=== PATIENT | female | born 1980 | race Caucasian/White ===

== ENCOUNTER 2023-12-11 10:31 | Day surgery (SDC) | payer OTHER ==
[~2023-12-11] VITALS: Ht 162.6 cm; Wt 60.6 kg
[~2023-12-11 10:31] MED LIST: BCP'S; CELE200 PO; DOCU100 PO; Glycopyrrolate 0.2 MG/ML 1MLVIAL ONE; HYDR1TAB94 PO; Imitrex4 MG/0.5 M; Lactated Ringer's 1,000 ML IV ONE; Lidocaine 2% 5 ML SDV ONE; Lidocaine HCl/Pf 1% 5 ML VIAL ONE; ONDA4 PO; Ondansetron HCl 2 MG / ML 2ML Vial ONE; PROM25 PO; RXPROM25 PO; SUMA25 PO; ePHEDrine Sulfate 50 MG/ML 1ML Injection ONE; propofoL 50 ML IV ONE
[2023-12-11] MEDS ORDERED: NURTEC ODT75 MG (11:24)
[2023-12-11] MEDS ORDERED: AJOVY SYRI225 MG/1.5 (11:24)
--- NOTE | 2023-12-11 11:36 | NUR ---
12/11/23 Joan Michele uRINE CIELO : NEG LOT # [id number] EX # 2025 12 12 LAB ERROR RN KNOWS
[2023-12-11] MEDS ORDERED: Lactated Ringer's 1,000 ML IV ONE (11:45)
[2023-12-11] MEDS ORDERED: propofoL 50 ML IV ONE (12:29)
[2023-12-11] MEDS ORDERED: NS 500 ML IV ONE (12:47)
[2023-12-11 13:29] VITALS: BP 123/74
== END 2023-12-11 13:35 | disposition home or self-care (01) ==
LOC: ORSCSDS 10:31
PROVIDERS: Internal Medicine Gastroenterology
PROC: 0DBN8ZX Excision of Sigmoid Colon, Via Natural or Artificial Opening Endoscopic, Diagnostic (ICD-10-PCS; principal; 2023-12-11 12:00)
PROC: 0DBL8ZX Excision of Transverse Colon, Via Natural or Artificial Opening Endoscopic, Diagnostic (ICD-10-PCS; principal; 2023-12-11 12:00)
PROC: 0DBK8ZX Excision of Ascending Colon, Via Natural or Artificial Opening Endoscopic, Diagnostic (ICD-10-PCS; principal; 2023-12-11 12:00)
DX: Z12.11 Encounter for screening for malignant neoplasm of colon (principal); Z86.0101 Personal history of adenomatous and serrated colon polyps; Z80.0 Family history of malignant neoplasm of digestive organs; Z83.719 Family history of colon polyps, unspecified; D12.2 Benign neoplasm of ascending colon; D12.3 Benign neoplasm of transverse colon; K63.5 Polyp of colon; Z79.899 Other long term (current) drug therapy
CPT/HCPCS: 88305; J2003; J2405; J2704; J7040; J7120